=== PATIENT | female | born 1990 | race Caucasian/White ===

== ENCOUNTER 2022-01-11 17:57 | Inpatient (IN) | payer OTHER ==
[~2022-01-11 17:57] MED LIST: ELECTROLYTE-148 SOLN 1,000 ML IV SCH
[2022-01-11 18:17] VITALS: BMI 31.7
[2022-01-11] MEDS ORDERED: BUTORPHANOL TARTRATE 2 MG/ML VIAL IVPB PRN (18:20)
[2022-01-11] MEDS ORDERED: BENZOCAINE 20% 57 GM BOTTLE TP PRN (18:22)
[2022-01-11] MEDS ORDERED: BENZOCAINE 28 GM HEMORRHOIDAL OINTMENT TP PRN (18:22)
[2022-01-11] MEDS ORDERED: ACETAMINOPHEN 325 MG TABLET (FP) PO PRN (18:22)
[2022-01-11] MEDS ORDERED: WITCH HAZEL 50% (TUCKS) 40 PAD/JAR PAD TP PRN (18:22)
[2022-01-11] MEDS ORDERED: BISACODYL 10 MG SUPP.RECT RC PRN (18:22)
[2022-01-11] MEDS ORDERED: METHYLERGONOVINE MALEATE 0.2 MG/1 ML AMP IM PRN (18:22)
[2022-01-11] MEDS ORDERED: OXYTOCIN 20 UNITS in 0.9% NS 20 UNIT/1,000 ML INFUS.BAG IV SCH (18:30)
[2022-01-11] MEDS ORDERED: ELECTROLYTE-148 SOLN 1,000 ML IV SCH (18:31)
[2022-01-11] MEDS ORDERED: BUTORPHANOL TARTRATE 2 MG/ML VIAL ONE (18:36)
[2022-01-11 18:43] LABS: BASO % 0.2 % (0-2.0); EOS % 0.4 % (0-4.5); HEMATOCRIT 37.2 % (32.4-45.2); HEMOGLOBIN 12.8 GM/dL (10.7-15.3); LYMPH % 14.2 % (8-40); MCH 28.1 pg (25.7-33.7); MCHC 34.4 g/dl (32.0-36.0); MEAN CELL VOLUME 81.7 fl (80-96); MEAN PLT VOLUME 9.2 fl (7.5-11.1); MONO % 5.6 % (3.8-10.2); NEUT % 79.6 % (42.8-82.8); PLATELET COUNT 162 10^3/uL (134-434); RBC 4.56 M/mm3 (3.60-5.2); RDW 17.2 % (11.6-15.6); WHITE BLOOD COUNT 6.4 K/mm3 (4.0-10.0)
[2022-01-11 19:07] LABS: CALCIUM 9.4 mg/dL (8.5-10.1)
[2022-01-11 19:08] LABS: BLOOD UREA NITROGEN 10.8 mg/dL (7-18); INR 0.94 (0.83-1.09); PROTHROMBIN TIME (PATIENT) 10.8 SEC (9.7-13.0)
[2022-01-11 19:11] LABS: ACTIVATED PTT 28.3 SECONDS (25.2-36.5); CREATININE 0.5 mg/dL (0.55-1.3)
[2022-01-11] MEDS ORDERED: OXYTOCIN 20 UNITS in 0.9% NS 20 UNIT/1,000 ML INFUS.BAG IV ONE (19:49)
[2022-01-11] MEDS ORDERED: LIDOCAINE HCL 1% PRESERVATIVE FREE - 30ML VIAL ONE (19:49)
[2022-01-11 22:09] LABS: CORD BASE EXCESS -2.1 mmol/L (0-2); CORD HCO3 24.4 mmHg (20-29); CORD PCO2 49.3 mmHg (30-78); CORD pH 7.313 (7.14-7.44)
[2022-01-11 22:10] LABS: CORD BASE EXCESS -1.5 mmol/L (0-2); CORD PCO2 38.4 mmHg (30-78); CORD pH 7.396 (7.14-7.44)
[2022-01-12 07:53] LABS: BASO % 0.1 % (0-2.0); EOS % 0.5 % (0-4.5); HEMATOCRIT 34.8 % (32.4-45.2); HEMOGLOBIN 11.5 GM/dL (10.7-15.3); LYMPH % 13.5 % (8-40); MCH 27.7 pg (25.7-33.7); MCHC 33.2 g/dl (32.0-36.0); MEAN CELL VOLUME 83.5 fl (80-96); MEAN PLT VOLUME 9.4 fl (7.5-11.1); MONO % 6.9 % (3.8-10.2); PLATELET COUNT 150 10^3/uL (134-434); RBC 4.16 M/mm3 (3.60-5.2); RDW 17.1 % (11.6-15.6); WHITE BLOOD COUNT 9.7 K/mm3 (4.0-10.0)
[2022-01-12] MEDS: IBUPROFEN 600 MG TABLET (FP) PO PRN ×2 (07:55→17:26)
[2022-01-12] MEDS: FERROUS SO4 325 MG TABLET (FP) PO SCH ×3 (07:55→17:27)
[2022-01-12] MEDS ORDERED: oxyCODONE HCL 5 MG TABLET PO PRN (08:00)
[2022-01-12] MEDS: PRENATAL VITAMINS W/ FOLIC ACID TABLET (FP) PO SCH (11:18)
[2022-01-12 12:08] LABS: SARS-CoV-2 NAA Not Detected (Not Detected)
[2022-01-12] MEDS ORDERED: SENNOSIDES/DOCUSATE COMBO (SENNA PLUS) TABLET (UD) PO PRN (22:00)
[2022-01-13 09:08] VITALS: BP 116/71; PULSE 75; TEMP 97.3
[2022-01-13] MEDS: FERROUS SO4 325 MG TABLET (FP) PO SCH (09:54)
[2022-01-13] MEDS: IBUPROFEN 600 MG TABLET (FP) PO PRN (09:54)
[2022-01-13] MEDS: PRENATAL VITAMINS W/ FOLIC ACID TABLET (FP) PO SCH (09:54)
== END 2022-01-13 12:55 | disposition home or self-care (01) | DRG 807 ==
LOC: JLDR 17:57 → J3W 23:32
PROVIDERS: ADMIT Obstetrics & Gynecology; ATTEND Obstetrics & Gynecology
PROC: 10E0XZZ Delivery of Products of Conception, External Approach (ICD-10-PCS; principal; 2022-01-11)
DX: O69.81X0 Labor and delivery complicated by cord around neck, without compression, not applicable or unspecified (principal); Z37.0 Single live birth; Z3A.39 39 weeks gestation of pregnancy
CPT/HCPCS: 36415; 36600; 59409; 80048; 82803; 85025; 85610; 85730; 86780; 86850; 86900; 86901; C9803-CS; U0003; U0005